=== PATIENT | male | born 1955 | race American Indian/Alaskan Native ===

== ENCOUNTER 2017-09-11 06:18 | Day surgery (SDC) | payer MEDICARE ==
[~2017-09-11 06:18] MED LIST: ANCEF/STERILE WATER 2 GM/20 ML 2 GM/20 ML SYRINGE IV NR
[2017-09-11] MEDS ORDERED: HEPARIN/NS 5000 UNIT/500ML(CATH LAB) 500 ML IR ONE (08:31)
[2017-09-11] MEDS ORDERED: HEPARIN 10,000 UNITS/10 ML ONE (08:31)
[2017-09-11] MEDS ORDERED: NACL 0.9% 500 ML 500 ML ONE (08:32)
[2017-09-11] MEDS ORDERED: SUBLIMAZE ONE (08:32)
[2017-09-11] MEDS ORDERED: VERSED ONE (08:32)
[2017-09-11] MEDS ORDERED: ANCEF/STERILE WATER 2 GM/20 ML 2 GM/20 ML SYRINGE IV ONE (08:32)
[2017-09-11] MEDS ORDERED: XYLOCAINE 2% INFILTRATI ONE ×2 (08:32→09:03)
[2017-09-11] MEDS ORDERED: SUBLIMAZE IV ONE ×2 (08:58→09:02)
[2017-09-11] MEDS ORDERED: VERSED IV ONE ×2 (08:58→09:02)
[2017-09-11] MEDS ORDERED: HEPARIN 10,000 UNITS/10 ML 5,000 UNIT in NACL 0.9% 500 ML 500 ML IR ONE (09:03)
--- NOTE | 2017-09-11 09:50 | Short Stay Summary ---
Short Stay Documentation Date of service: 09/11/17 Narrative H&P: 62 year old male with ESRD and swollen RUE with right innominate vein severe stenosis who presents for AVF malfunction. - History Principal diagnosis: ESRD with AVF malfunction H&P: obtained from office - Allergies and Medications Current Medications: Allergies No Known Allergies Allergy (Unverified 05/19/13 18:31) Home Medications Medication Instructions Recorded Confirmed Last Taken Type Aspirin [Aspirin Enteric Coated] 81 mg PO DAILY 05/19/13 09/11/17 09/10/17 History 81mg Ipratropium/Albuterol Sulfate 2 puff INHALATION QID 05/19/13 09/11/17 09/10/17 History [Combivent Respimat] 2 puff Pravastatin [Pravachol] 40 mg PO DAILY 05/19/13 09/11/17 09/10/17 History 40mg glipiZIDE [glipiZIDE XL] 10 mg PO BID 05/19/13 09/11/17 09/10/17 History 10mg Calcium Acetate 4 tab PO TID 09/11/17 09/11/17 09/10/17 History Carvedilol 25 mg PO BID 09/11/17 09/11/17 09/10/17 History 25mg Active Medications Cefazolin Sodium (Ancef/Sterile Water 2 Gm/20 Ml) 2 gm in 20 mls @ 80 mls/hr IV PREOP NR; Protocol Stop: 09/11/17 23:59 Last Admin: 09/11/17 09:03 Dose: 20 mls - Physical exam General appearance: no acute distress HEENT: EOMI Lungs: Normal air movement Gastrointestinal: normal Extremities: normal temperature, normal color - Brief post op/procedure progress note Date of procedure: 09/11/17 Pre-op diagnosis: AVF malfunction Post-op diagnosis: same Procedure: AVF angioplasty central and peripheral Anesthesia: local Surgeon: RHODA MADSEN Condition: stable - Hospital course Hospital course: Tolerated procedure well. No issues. - Disposition Condition at discharge: Stable Disposition: [id number] TO HOME OR SELFCARE - Discharge Diagnoses (1) AV graft malfunction Status: Acute Short Stay Discharge Plan Activity: advance as tolerated Weight Bearing Status: Weight Bear as Tolerated Diet: renal Wound: keep clean and dry, other (if stitch does not fall out in 1 week, then ask dialysis technologists to remove. If they cannot remove, then please contact [facility] and we will remove stitch.) Follow up with: TRIPP JORGE MD [Primary Care Provider] - 7 Days
--- NOTE | 2017-09-11 09:50 | Operative Report ---
Operative Report Operative Report: EXAM: 1. Ultrasound guided access of the left arm AV access towards the venous outflow 2. Fistulogram 3. Selection of the IVC with IVC venography 4. Angioplasty of the right innominate vein and right axillary vein with an 8 mm x 2 cm cutting angioplasty balloon 5. Angioplasty of the right innominate pain with a 12 mm x 6 cm angioplasty balloon 6. Angioplasty of the right axillary vein with a 10 mm x 4 cm angioplasty balloon DATE: 09/11/17 RAD TECHNOLOGIST: RHODA MADSEN MD INDICATION: 62-year-old male with AV fistula malfunction and prior swollen right upper extremity with central stenosis who presents for angioplasty MEDICATIONS: Please see nursing report for full details. DEVICES: 8 mm x 2 cm cutting angioplasty balloon 10 mm x 4 cm [place] angioplasty balloon 12 mm x 6 cm angioplasty balloon PROCEDURE: The risks, benefits, and alternatives of the procedure were discussed and written informed consent was obtained. The patient was transported in stable condition to the angiography suite. The patient's left arm AV fistula was assessed by ultrasound and was patent. The patient was prepped and draped in a sterile fashion. Under ultrasound guidance, the left arm AV fistula was accessed with a 21-gauge micropuncture needle. The area was anesthetized prior to access. 0.018 inch wire was advanced through the micropuncture needle into the fistula and then the needle was exchanged for a 5 [place] transitional dilator. The inner dilator and wire were removed and a 0.035 inch wire was advanced through the venous outflow. The transitional dilator was exchanged for a 7 [place] short sheath. Fistulogram was performed of the venous outflow and central veins. Digital subtraction angiography demonstrated the mid and distal basilic vein was patent and there were 2 axillary veins, with the lower axillary vein being patent, and the upper axillary vein having a 60% narrowing at its midportion. The right subclavian vein was patent. The right innominate vein was 95% narrowed. The SVC was patent. Angled catheter and Glidewire was passed into the IVC. Digital subtraction angiography was performed in the IVC demonstrating patency of the IVC with severe inflow phenomenon from the liver at the hepatic confluence. V18 wire was passed into the IVC. Cutting 8 mm angioplasty balloon was advanced over the wire and used to perform angioplasty of the right innominate vein at multiple segments. Angioplasty balloon was then used to perform angioplasty in the axillary vein at the area of narrowing. Digital subtraction angiography was performed demonstrating 70% residual narrowing of the right innominate vein and 50% residual narrowing of the right upper axillary vein. 12 mm x 6 cm angioplasty balloon and she's perform angioplasty of the right innominate vein. 10 mm x 4 cm angioplasty balloon which she's perform angioplasty of the right axillary vein. Digital subtraction angiography demonstrated 40% residual narrowing of the right upper axillary vein and 60% residual narrowing of the right innominate vein. Repeat angioplasty was performed with a 12 mm x 6 cm angioplasty balloon of the right innominate vein. There is 50% residual narrowing of the right innominate vein. At this point, all wires, catheters, and sheaths were removed. Pressure was held until hemostasis was achieved. IMPRESSION: 1. Fistulogram as described above. 2. Successful angioplasty of the peripheral dialysis access. 3. Successful angioplasty of the central dialysis access.
[2017-09-11 11:25] VITALS: BP 144/81
== END 2017-09-11 10:45 | disposition home or self-care (01) ==
LOC: CATHLABREC 06:18
PROVIDERS: ATTEND Radiology Diagnostic Radiology
DX: T82.898A Other specified complication of vascular prosthetic devices, implants and grafts, initial encounter (principal); N18.6 End stage renal disease; Y83.2 Surgical operation with anastomosis, bypass or graft as the cause of abnormal reaction of the patient, or of later complication, without mention of misadventure at the time of the procedure
CPT/HCPCS: 36415; 36902; 36907; 84132; C1725; C1751; C1769; C1894; J0690; J1644; J2250; J3010; J7040; Q9967